=== PATIENT | female | born 1995 | race African-American/Black ===

== ENCOUNTER 2020-08-01 09:39 | Emergency (ER) | payer OTHER ==
[2020-08-01 10:11] VITALS: BP 110/76; PULSE 77; TEMP 98.9; BMI 27.3
--- NOTE | 2020-08-01 11:01 | PDOC ---
History of Present Illness - General Chief Complaint: Injury Stated Complaint: LEFT TOE INJURY Time Seen by Provider: 08/01/20 10:06 History Source: Patient - History of Present Illness Occurred: reports: other (last night) Pain Location: reports: lower extremity Method of Injury: Yes: direct blow Past History - Medical History Allergies/Adverse Reactions: Allergies Allergy/AdvReac Type Severity Reaction Status Date / Time No Known Allergies Allergy Unverified 08/01/20 10:05 CVA: No COPD: No CHF: No - Reproductive History Is Patient Now?: No - Psycho-Social/Smoking History Smoking History: Never smoked Have you smoked in the past 12 months: No Information on smoking cessation initiated: No - Substance Abuse Hx (Audit-C & DAST Scrn) How often the patient has a drink containing alcohol: Never Score: In Men: 4 or > Positive; In Women: 3 or > Positive: 0 Screen Result (Pos requires Nsg. Audit-10AR): Negative In the last yr the pt used illegal drug/Rx for NonMed reason: No Score: Yes response is considered Positive: 0 Screen Result (Positive result requires Nsg. DAST-10): Negative Review of Systems - Review of Systems Musculoskeletal: Yes: Joint Pain *Physical Exam - Vital Signs Last Vital Signs Temp Pulse Resp BP Pulse Ox 98.9 F 77 17 110/76 100 08/01/20 10:00 08/01/20 10:00 08/01/20 10:00 08/01/20 10:00 08/01/20 10:00 - Physical Exam General Appearance: Yes: Appropriately Dressed HEENT: positive: Normal Voice Neck: positive: Supple Respiratory/Chest: negative: Respiratory Distress Extremity: positive: Other (minimal contusion to dorsum of L 5th digit w/ ttp, no swelling) Integumentary: positive: Dry, Warm Neurologic: positive: Alert, Normal Mood/Affect ED Treatment Course - RADIOLOGY Radiology Studies Ordered: Category Date Time Status FOOT-LEFT [RAD] Stat Radiology 08/01/20 10:28 Taken Medical Decision Making - Medical Decision Making 08/01/20 11:06 24-year-old female no significant history here with pain to L 5th toe after accidentally bumping it in radiator last night. Patient well-appearing and stable with mild contusion to L 5th digit. No fracture on x-ray. Cal tape placed. Patient to take motrin for pain as needed Discharge - Discharge Information Problems reviewed: Yes Clinical Impression/Diagnosis: Toe contusion Qualifiers: Encounter type: initial encounter Toe: lesser toe Damage to nail status: without damage Laterality: left Qualified Code(s): S90.122A - Contusion of left lesser toe(s) without damage to nail, initial encounter Condition: Good Disposition: HOME - Follow up/Referral Referrals: ON STAFF,NOT [Primary Care Provider] - - Patient Discharge Instructions Additional Instructions: Your x-ray was negative for any toe fracture Keep cal placed in place to protect your toe while it heals Take Motrin or Tylenol for pain as needed - Post Discharge Activity Work/Back to School Note: Back to Work
== END 2020-08-01 11:09 | disposition home or self-care (01) ==
LOC: JER 09:39
DX: S90.122A Contusion of left lesser toe(s) without damage to nail, initial encounter (principal)
CPT/HCPCS: 73630-TC-LT; 99284-25